=== PATIENT | male | born 1945 | race Caucasian/White ===

== ENCOUNTER 2016-12-30 23:37 | Emergency (ER) | payer OTHER, BC ==
[2016-12-31 00:21] VITALS: BMI 33.9
[2016-12-31] MEDS ORDERED: ONDANSETRON 4 MG/2 ML VIAL IVPUSH ONE (00:32)
[2016-12-31] MEDS ORDERED: morphine CARPU-JECT 4 MG/1 ML DISP.SYRIN IVPUSH ONE (00:32)
[2016-12-31] MEDS ORDERED: SODIUM CHLORIDE 1,000 ML IV STA ×2 (00:32→03:57)
[2016-12-31] MEDS ORDERED: ONDANSETRON 4 MG/2 ML VIAL ONE (00:44)
[2016-12-31] MEDS ORDERED: morphine CARPU-JECT 4 MG/1 ML DISP.SYRIN ONE (00:44)
[2016-12-31 01:14] LABS: BASOPHIL 0.7 % (0-2.0); EOSINOPHIL 3.4 % (0-4.5); MCH 25.8 pg (25.7-33.7); MCHC 32.2 g/dl (32.0-35.9); MEAN PLT VOLUME 7.5 fl (7.5-11.1); NEUTROPHILS 73.7 % (42.8-82.8); PLATELET COUNT 362 K/MM3 (134-434); RDW 15.2 % (11.9-15.9); WHITE BLOOD COUNT 11.5 K/mm3 (4.0-10.0)
--- NOTE | 2016-12-31 01:30 | PDOC ---
History of Present Illness - General Chief Complaint: Edema Stated Complaint: WEAKNESS Time Seen by Provider: 12/31/16 00:12 History Source: Patient Exam Limitations: No Limitations - History of Present Illness Travel History: No Initial Comments: 12/31/16 01:29 71yo Male patient w/ PmHx: Heart failure, AICD presents to ED c/o weakness, dizziness and abdominal pain. Patient states he is recently being treated for UTI and Scleritis. Patient reports near-syncope while trying to ambulate to bathroom due to abdominal pain. He denies any other complaints at this time. Timing/Duration: reports: getting worse Quality: reports: severe Abdominal Pain Onset Location: reports: RUQ, RLQ Pain Radiation: reports: no radiation Activities at Onset: denies: none, exertion, emotional upset, rest, sleep, no specific activity, eating, working, sexual intercourse, other Treatment Prior to Arrive: worse with: analgesics, antacids, cold pack, heat, laxative, enema, other Aggravating Factors: worse with: None, Defecation, Eating, Emotional upset, Exertion, [place], Movement, Voiding, Change in position Past History - Travel Traveled outside of the country in the last 30 days: No Close contact w/someone who was outside of country & ill: No - Past Medical History Allergies/Adverse Reactions: Allergies Allergy/AdvReac Type Severity Reaction Status Date / Time No Known Allergies Allergy Verified 12/31/16 00:21 HTN: Yes - Psycho/Social/Smoking Cessation Hx Suicidal Ideation: No Smoking History: Never smoked Information on smoking cessation initiated: No Hx Alcohol Use: No Drug/Substance Use Hx: No Abd/GI Specific PMHX - Complaint Specific PMHX Colitis: No Diverticulitis: No Gall Bladder Disease: No GERD: No Hepatitis: No Irritable Bowel Synd (IBS): No Pancreatitis: No GI Ulcer Disease: No Review of Systems - Review of Systems Able to Perform ROS?: Yes Is the patient limited Malagasy proficient: No Constitutional: Yes: Weakness. No: Chills, Fever Respiratory: No: Cough, Shortness of Breath, Wheezing Cardiac (ROS): Yes: Syncope. No: Chest Pain, Lightheadedness, Palpitations, Chest Tightness ABD/GI: Yes: Abdominal Distended, Abdominal cramping (RLQ). No: Constipated, Diarrhea, Nausea, Poor Appetite, Poor Fluid Intake, Vomiting : No: Burning, Dysuria, Flank Pain, Hematuria Musculoskeletal: No: Back Pain All Other Systems: Reviewed and Negative *Physical Exam - Vital Signs Last Vital Signs Temp Pulse Resp BP Pulse Ox 98.1 F 79 19 121/74 96 12/31/16 00:10 12/31/16 00:10 12/31/16 00:10 12/31/16 00:10 12/31/16 00:10 - Physical Exam General Appearance: Yes: Nourished, Appropriately Dressed, Moderate Distress. No: Apparent Distress, Mild Distress, Severe Distress Neck: positive: Trachea midline, Supple. negative: Decreased range of motion, Lymphadenopathy (R), Lymphadenopathy (L) Respiratory/Chest: positive: Lungs Clear, Normal Breath Sounds. negative: Chest Tender, Respiratory Distress, Accessory Muscle Use, Labored Respiration, Rapid RR, Stridor, Wheezing Cardiovascular: positive: Regular Rhythm, Regular Rate Gastrointestinal/Abdominal: positive: Tender, Soft, Increased Bowel Sounds, Distended, Rebound, Tenderness (RLQ). negative: Guarding Musculoskeletal: positive: Normal Inspection. negative: CVA Tenderness, Vertebral Tenderness Extremity: positive: Normal Capillary Refill, Normal Inspection, Normal Range of Motion. 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 NML intact, Fully Oriented, Alert, Normal Mood/ Affect, Normal Response, Motor Strength 5/5 ED Treatment Course - LABORATORY CBC & Chemistry Diagram: 12/31/16 01:00 12/31/16 01:00 - ADDITIONAL ORDERS Additional order review: 12/31/16 01:00 RBC 4.77 MCV 80.0 MCHC 32.2 RDW 15.2 MPV 7.5 Neutrophils % 73.7 Lymphocytes % 14.2 Monocytes % 8.0 Eosinophils % 3.4 Basophils % 0.7 - RADIOLOGY Radiology Studies Ordered: Category Date Time Status ABDOMEN & PELVIS CT WITH CONTR [CT] Stat CT Scan 12/31/16 00:32 Ordered - Medications Given in the ED: ED Medications Discontinued Medications Generic Name Dose Route Start Last Admin Trade Name Freq PRN Reason Stop Dose Admin Morphine Sulfate 4 mg 12/31/16 00:32 12/31/16 00:41 Morphine Injection - IVPUSH 12/31/16 00:33 4 mg ONCE ONE Administration Ondansetron HCl 4 mg 12/31/16 00:32 12/31/16 00:41 Zofran Injection IVPUSH 12/31/16 00:33 4 mg ONCE ONE Administration *DC/Admit/Observation/Transfer Diagnosis at time of Disposition: Urinary tract infection Qualifiers: Urinary tract infection type: acute cystitis Hematuria presence: without hematuria Qualified Code(s): N30.00 - Acute cystitis without hematuria - Discharge Dispostion Disposition: HOME Condition at time of disposition: Improved Admit: No - Patient Instructions Printed Discharge Instructions: DI for Urinary Tract Infection (UTI) Additional Instructions: FOLLOW UP WITH YOUR UROLOGIST SCHEDULED. CONTINUE YOUR ANTIBIOTICS TO TREAT UTI. RETURN IF ANY CONCERNS FOR FURTHER EVALUATION. Print Language: MACANESE
[2016-12-31 01:35] LABS: ANION GAP 9 (8-16); CALCIUM 8.5 mg/dL (8.5-10.1); CO2 26 mmol/L (21-32); CREATININE 1.7 mg/dL (0.7-1.3); GLUCOSE,RANDOM 145 mg/dL (74-106)
[2016-12-31 01:38] LABS: AMYLASE 94 U/L (25-115)
[2016-12-31 01:41] LABS: CPK 80 IU/L (39-308); TROPONIN I < 0.02 ng/ml (0.00-0.05)
[2016-12-31 01:54] LABS: URINE APPEARANCE CLEAR; URINE BILIRUBIN NEGATIVE (NEGATIVE); URINE BLOOD 2+ (NEGATIVE); URINE COLOR STRAW; URINE GLUCOSE (UA) NEGATIVE (NEGATIVE); URINE KETONE NEGATIVE (NEGATIVE); URINE NITRITE NEGATIVE (NEGATIVE); URINE UROBILINOGEN NEGATIVE mg/dL (0.2-1.0)
[2016-12-31 02:01] LABS: URINE LEUK ESTERASE 2+ (NEGATIVE); URINE PROTEIN 1+ (NEGATIVE)
[2016-12-31 02:14] LABS: URINE HYALINE CAST 1 /lpf; URINE RBC 17 /hpf (0-3); URINE WBC 62 /hpf (3-5)
[2016-12-31] MEDS ORDERED: PANTOPRAZOLE SODIUM 40 MG in SODIUM CHLORIDE 100 ML IVPB ONE (02:49)
[2016-12-31] MEDS ORDERED: PANTOPRAZOLE SODIUM 40 MG VIAL ONE (02:59)
[2016-12-31] MEDS ORDERED: cefTRIAXone 1 GM/50 ML BAG (PRE-DOCKED) IVPB ONE (03:57)
[2016-12-31] MEDS ORDERED: CEFTRIAXONE 50 ML ONE (04:22)
[2016-12-31 05:50] VITALS: BP 128/72; PULSE 78; TEMP 98.7
== END 2016-12-31 05:56 | disposition home or self-care (01) ==
LOC: JER 23:37
PROC: 3E0337Z Introduction of Electrolytic and Water Balance Substance into Peripheral Vein, Percutaneous Approach (ICD-10-PCS; principal; 2016-12-30)
PROC: 3E033GC Introduction of Other Therapeutic Substance into Peripheral Vein, Percutaneous Approach (ICD-10-PCS; 2016-12-30)
PROC: 3E033NZ Introduction of Analgesics, Hypnotics, Sedatives into Peripheral Vein, Percutaneous Approach (ICD-10-PCS; 2016-12-30)
PROC: 3E03329 Introduction of Other Anti-infective into Peripheral Vein, Percutaneous Approach (ICD-10-PCS; 2016-12-30)
PROC: 3E033GC Introduction of Other Therapeutic Substance into Peripheral Vein, Percutaneous Approach (ICD-10-PCS; 2016-12-30)
DX: N30.00 Acute cystitis without hematuria (principal); I25.10 Atherosclerotic heart disease of native coronary artery without angina pectoris; I11.0 Hypertensive heart disease with heart failure; Z95.810 Presence of automatic (implantable) cardiac defibrillator
CPT/HCPCS: 36415; 74176-TC; 80048; 81003; 81015; 82150; 84484; 85025; 96361; 96365; 96375; 99283-25

== ENCOUNTER 2017-01-11 21:46 | Emergency (ER) | payer OTHER, BC ==
[2017-01-11 21:52] VITALS: BP 119/90; PULSE 70; TEMP 97.3; BMI 33.5
--- NOTE | 2017-01-11 22:11 | PDOC ---
History of Present Illness - General History Source: Patient Exam Limitations: No Limitations - History of Present Illness Initial Comments: 01/11/17 22:51 The patient is a 71 year old male with a significant PMHx of heart failure and AICD, who presents to the emergency department with abdominal pain since 6pm tonight. He states he is being treated for scleritis and a rheumatological disorder with valacyclovir and methotrexate for the last 3 days. He states that he took both medications simultaneously today for the first time and began to develop abdominal pain. He reports the pain is located in the mid-epigastric region, constant and non-radiating, with a severity of 10/10, and describes the pain as dull, achy, and pressure-like. He reports associated nausea and chills. He states the abdominal pain is worsened by sitting forward and is mitigated when lying flat. He reports he only had rice and beans earlier in the day, and had a normal bowel movement today. The patient denies chest pain, shortness of breath, headache and dizziness. Denies fever, vomit, diarrhea and constipation. Denies dysuria, frequency, urgency and hematuria. Allergies: NKDA Past surgical history: None reported Social history: No toxic habits reported. <Alexys Mckeon - Last Filed: 01/11/17 22:51> <Karey Ulloa - Last Filed: 01/12/17 05:05> - General Chief Complaint: Pain, Acute Stated Complaint: STOMACH PAIN Time Seen by Provider: 01/11/17 21:49 Past History <Alexys Mckeon - Last Filed: 01/11/17 22:51> - Past Medical History HTN: Yes - Immunization History Immunization Up to Date: Yes - Psycho/Social/Smoking Cessation Hx Suicidal Ideation: No Smoking History: Never smoked Hx Alcohol Use: No Drug/Substance Use Hx: No <Karey Ulloa - Last Filed: 01/12/17 05:05> - Past Medical History Allergies/Adverse Reactions: Allergies Allergy/AdvReac Type Severity Reaction Status Date / Time No Known Allergies Allergy Verified 01/11/17 21:52 Home Medications: Ambulatory Orders Finasteride 5 mg PO DAILY 12/31/16 Folic Acid 1 mg PO DAILY 12/31/16 Lisinopril 10 mg PO DAILY 12/31/16 Metoprolol Succinate [Toprol Xl -] 25 mg PO BID 12/31/16 Tamsulosin HCl 0.4 mg PO DAILY 12/31/16 Review of Systems - Review of Systems Able to Perform ROS?: Yes Comments:: 01/11/17 22:52 CONSTITUTIONAL: Present: (+) chills Absent: Fevers, diaphoresis, generalized weakness, malaise, loss of appetite HEENT: Absent: rhinorrhea, nasal congestion, throat pain, throat swelling, difficulty swallowing, mouth swelling, ear pain, eye pain, visual Changes CARDIOVASCULAR: Absent: chest pain, syncope, palpitations, irregular heart rate, lightheadedness , peripheral edema RESPIRATORY: Absent: cough, shortness of breath, dyspnea with exertion, orthopnea, wheezing, stridor, hemoptysis GASTROINTESTINAL: Present: (+) abdominal pain, (+) nausea Absent: abdominal distension, vomiting, diarrhea, constipation, melena, hematochezia GENITOURINARY: Absent: dysuria, frequency, urgency, hesitancy, hematuria, flank pain, genital pain MUSCULOSKELETAL: Absent: myalgia, arthralgia, joint swelling SKIN: Absent: rash, itching, pallor HEMATOLOGIC/IMMUNOLOGIC: Absent: easy bleeding, easy bruising, lymphadenopathy, frequent infections ENDOCRINE: Absent: unexplained weight gain, unexplained weight loss, heat intolerance, cold intolerance NEUROLOGIC: Absent: headache, focal weakness or paresthesias, dizziness, unsteady gait, seizure, mental status changes, bladder or bowel incontinence PSYCHIATRIC: Absent: anxiety, depression, suicidal or homicidal ideation, hallucinations. <Alexys Mckeon - Last Filed: 01/11/17 22:51> *Physical Exam - Vital Signs Last Vital Signs Temp Pulse Resp BP Pulse Ox 97.3 F L 70 20 119/90 98 01/11/17 21:50 01/11/17 21:50 01/11/17 21:50 01/11/17 21:50 01/11/17 21:50 - Physical Exam Comments: 01/11/17 22:52 GENERAL: Well developed, well nourished. Awake and alert. No acute distress. HEENT: Normocephalic, atraumatic. PERRLA, EOMI. Sclera are non-icteric. Moist mucous membranes. Oropharynx is clear. (+) Right eye injected conjunctiva. NECK: Supple. Full ROM. No JVD. Carotid pulses 2+ and symmetric, without bruits. No thyromegaly. No lymphadenopathy. CARDIOVASCULAR: Regular rate and rhythm. No murmurs, rubs, or gallops. Distal pulses are 2+ and symmetric. PULMONARY: No evidence of respiratory distress. Lungs clear to auscultation bilaterally. No wheezing, rales or rhonchi. ABDOMINAL: (+) Epigastric tenderness, RUQ and LUQ tender to palpation. (+) Guarding in lower quadrants. Soft. Non-distended. No rebound.. No organomegaly. (+) Gassy bowel sounds. MUSCULOSKELETAL Normal range of motion at all joints. No bony deformities or tenderness. No CVA tenderness. EXTREMITIES: No cyanosis. No clubbing. No edema. No calf tenderness. SKIN: Warm and dry. Normal capillary refill. No rashes. No jaundice. NEUROLOGICAL: Alert, awake, appropriate. Cranial nerves 2-12 intact. No deficits to light touch and temperature in face, upper extremities and lower extremities. No motor deficits in the in face, upper extremities and lower extremities. Normoreflexic in the upper and lower extremities. Normal speech. Toes are downgoing bilaterally. PSYCHIATRIC: Cooperative. Good eye contact. Appropriate mood and affect. <Alexys Mckeon - Last Filed: 01/11/17 22:51> - Vital Signs Last Vital Signs Temp Pulse Resp BP Pulse Ox 97.3 F L 70 20 119/90 98 01/11/17 21:50 01/11/17 21:50 01/11/17 21:50 01/11/17 21:50 01/11/17 21:50 <Karey Ulloa - Last Filed: 01/12/17 05:05> ED Treatment Course - LABORATORY CBC & Chemistry Diagram: 01/11/17 22:30 01/11/17 22:30 - ADDITIONAL ORDERS Additional order review: Laboratory Results 01/11/17 22:40 Urine Color Straw Urine Appearance Clear Urine pH 5.0 Urine Protein 1+ H Urine Glucose (UA) Negative Urine Ketones Negative Urine Blood 3+ H Urine Nitrite Negative Urine Bilirubin Negative Urine Urobilinogen Negative Ur Leukocyte Esterase Trace 01/11/17 22:30 RBC 4.36 MCV 79.4 L MCHC 33.7 RDW 14.6 MPV 7.5 Neutrophils % 65.3 Lymphocytes % 21.2 D Monocytes % 9.1 Eosinophils % 3.8 Basophils % 0.6 - Medications Given in the ED: ED Medications Discontinued Medications Generic Name Dose Route Start Last Admin Trade Name Rebecca PRN Reason Stop Dose Admin Al Hydroxide/Mg Hydroxide 30 ml 01/11/17 22:24 01/11/17 22:36 Mylanta Oral Suspension - PO 01/11/17 22:25 30 ml ONCE ONE Administration Famotidine/Sodium Chloride 50 mls @ 100 mls/hr 01/11/17 22:14 01/11/17 22:36 Pepcid 20 Mg Premixed Ivpb - IVPB 01/11/17 22:43 100 mls/hr ONCE ONE Administration Ondansetron HCl 4 mg 01/11/17 22:14 01/11/17 22:36 Zofran - PO 01/11/17 22:15 4 mg ONCE ONE Administration <Alexys Mckeon - Last Filed: 01/11/17 22:51> - LABORATORY CBC & Chemistry Diagram: 01/11/17 22:30 01/11/17 22:30 <Karey Ulloa - Last Filed: 01/12/17 05:05> Medical Decision Making - Medical Decision Making 01/12/17 05:00 Pt comes with abdominal pain after taking valtrex 1000mg followed by methotrexate 15mg. He had eaten beans and rice however, he now has gassy abdomen. FUA abd xr is normal; no air fluid levels signifying blockage. Pt's CXR is normal; no free air under diaphragm. Labs normal. Pt feeling better with meds and hydration. He will be discharged home with PMD follow up. <Karey Ulloa - Last Filed: 01/12/17 05:05> *DC/Admit/Observation/Transfer - Attestations Physician Attestion: 01/11/17 22:53 Documentation prepared by Alexys Mckeon, acting as phlebotomist medical lab assistant for Karey Ulloa MD. <Alexys Mckeon - Last Filed: 01/11/17 22:51> - Discharge Dispostion Admit: No <Karey Ulloa - Last Filed: 01/12/17 05:05> Diagnosis at time of Disposition: Gastritis, Gas pain - Discharge Dispostion Disposition: HOME Condition at time of disposition: Improved - Patient Instructions Printed Discharge Instructions: DI for Gastritis
[2017-01-11] MEDS ORDERED: FAMOTIDINE 20 MG/50 ML IVPB 50 ML IVPB ONE ×2 (22:14→22:36)
[2017-01-11] MEDS ORDERED: ONDANSETRON 4 MG TABLET PO ONE (22:14)
[2017-01-11] MEDS ORDERED: MAG HYDROX/AL HYDROX/SIMETH 30 ML UNIT-DOSE CUP PO ONE (22:24)
[2017-01-11] MEDS ORDERED: ONDANSETRON *ODT* 4 MG TABLET ONE (22:36)
[2017-01-11] MEDS ORDERED: MAG HYDROX/AL HYDROX/SIMETH 30 ML UNIT-DOSE CUP ONE (22:42)
[2017-01-11 22:43] LABS: BASOPHIL 0.6 % (0-2.0); EOSINOPHIL 3.8 % (0-4.5); MCH 26.8 pg (25.7-33.7); MCHC 33.7 g/dl (32.0-35.9); MEAN CELL VOLUME 79.4 fl (80-96); MEAN PLT VOLUME 7.5 fl (7.5-11.1); NEUTROPHILS 65.3 % (42.8-82.8); PLATELET COUNT 442 K/MM3 (134-434); RDW 14.6 % (11.9-15.9); WHITE BLOOD COUNT 9.8 K/mm3 (4.0-10.0)
[2017-01-11 22:47] LABS: URINE APPEARANCE CLEAR; URINE BILIRUBIN NEGATIVE (NEGATIVE); URINE BLOOD 3+ (NEGATIVE); URINE COLOR STRAW; URINE GLUCOSE (UA) NEGATIVE (NEGATIVE); URINE KETONE NEGATIVE (NEGATIVE); URINE LEUK ESTERASE TRACE (NEGATIVE); URINE NITRITE NEGATIVE (NEGATIVE); URINE UROBILINOGEN NEGATIVE mg/dL (0.2-1.0)
[2017-01-11 22:48] LABS: URINE PROTEIN 1+ (NEGATIVE)
[2017-01-11 22:50] LABS: URINE BACTERIA RARE /hpf (NONE SEEN); URINE RBC 2 /hpf (0-3); URINE WBC 7 /hpf (3-5)
[2017-01-11 23:06] LABS: TROPONIN I 0.02 ng/ml (0.00-0.05)
[2017-01-11 23:10] LABS: ALBUMIN 3.2 g/dl (3.4-5.0); ALK PHOS 128 U/L (45-117); ANION GAP 10 (8-16); BILIRUBIN,TOTAL 0.4 mg/dL (0.2-1.0); CALCIUM 8.5 mg/dL (8.5-10.1); CO2 27 mmol/L (21-32); CREATININE 1.5 mg/dL (0.7-1.3); GLUCOSE,RANDOM 114 mg/dL (74-106); SGOT/AST 13 U/L (15-37); SGPT/ALT 24 U/L (12-78)
[2017-01-11] MEDS ORDERED: ACETAMINOPHEN 500 MG TABLET (FP) PO ONE (23:52)
[2017-01-12] MEDS ORDERED: ACETAMINOPHEN 325 MG TABLET (FP) ONE (00:28)
--- NOTE | 2017-01-12 08:54 | PDOC ---
Patient Follow-up (Call Back) - Post ED Follow - Up Condition at time of discharge: Improved Disposition at time of original discharge: HOME Reason for Call Back: Radiology (As per Dr. Magana there is a prominent vessel versus nodular near the right hilum on chest x-ray recommend follow-up with PMD for repeat study versus CT scan, to evaluate. Left message for patient on home number, awaiting call back)
--- NOTE | 2017-01-12 13:26 | EKG ---
Test Reason : Blood Pressure : / mmHG Vent. Rate : 071 BPM Atrial Rate : 071 BPM P-R Int : 216 ms QRS Dur : 186 ms QT Int : 450 ms P-R-T Axes : 093 -79 042 degrees QTc Int : 489 ms SINUS RHYTHM WITH 1ST DEGREE A-V BLOCK LEFT AXIS DEVIATION RIGHT BUNDLE BRANCH BLOCK ABNORMAL ECG NO PREVIOUS ECGS AVAILABLE CLINICAL CORRELATION IS RECOMMENDED Confirmed by SHANIQUE MONCADA, KYLE ([id number] on 01/12/2017 1:25:28 PM Referred By: Confirmed By:KYLE BAY MD
== END 2017-01-12 01:06 | disposition home or self-care (01) ==
LOC: JER 21:46
PROC: 3E033GC Introduction of Other Therapeutic Substance into Peripheral Vein, Percutaneous Approach (ICD-10-PCS; principal; 2017-01-11)
DX: K29.70 Gastritis, unspecified, without bleeding (principal); R14.1 Gas pain; I10 Essential (primary) hypertension; I50.9 Heart failure, unspecified; Z95.810 Presence of automatic (implantable) cardiac defibrillator
CPT/HCPCS: 36415; 71020-TC; 74020-TC; 80053; 81003; 81015; 84484; 85025; 93005; 93010; 99282-25